=== PATIENT | male | born 1945 | race Caucasian/White ===

== ENCOUNTER 2020-07-02 12:12 | Outpatient (CLI) | payer MEDICARE, OTHER ==
--- NOTE | 2020-07-02 16:54 | XRAY Report ---
PROCEDURE: Hip w/Pelvis 1V LT INDICATIONS: L HIP PX TECHNIQUE: AP pelvis with lateral view(s) of the left hip(s). COMPARISON: None. FINDINGS: Bones: No fractures or dislocations. Symmetric appearing bilateral hip joint osteophytic changes ar e seen. No evidence of avascular necrosis of femoral head. 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 Pelvic ring a ppears intact. No suspicious bony lesions. Soft tissues: The visualized bowel gas pattern is normal. No suspicious soft tissue calcifications. 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 No fracture or dislocation. No eviden ce of avascular necrosis. Reviewed by: Nahum Keith MD on 07/02/2020 4:53 PM PST Approved by: Nahum Keith MD on 07/02/2020 4:53 PM PST Station ID: [id number]
== END 2020-07-02 23:59 | disposition home or self-care (01) ==
LOC: DI.N 12:12
PROVIDERS: ATTEND Family Medicine
DX: M16.0 Bilateral primary osteoarthritis of hip (principal)